=== PATIENT | female | born 1955 | race Caucasian/White ===

== ENCOUNTER 2023-10-04 07:04 | Day surgery (SDC) | payer OTHER ==
[2023-10-01 09:49] LABS: Absolute Basophils 0.1 K/uL (0-0.5); Absolute Eosinophils 0.2 K/uL (0-0.5); Absolute Lymphocytes (CBC) 2.2 K/uL (0.7-4.9); Basophils % 0.9 % (0-1.3); Eosinophils % 2.4 % (0-4.4); Hematocrit 42.8 % (36.0-45.0); Lymphocytes % 31.4 % (15.3-44.8); MCV 93.8 fL (80-100); MPV 8.2 fL (7.6-11.3); Platelets 305 thou/uL (152-406); RBC Red Blood Cell Count 4.56 M/uL (3.86-4.86)
[2023-10-01 09:59] LABS: Protime INR 0.99
--- NOTE | 2023-10-01 10:03 | RAD REPORT ---
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 COMPARISON: Chest Pa And Lat (2 Views) dated 08/11/2021; Chest Pa And Lat (2 Views) dated 09/25/2017; CHEST PA AND LAT 2 VIEW dated 07/14/2015; CHEST PA AND LAT 2 VIEW dated 07/03/2013 TECHNIQUE: PA and lateral views of the chest were obtained. FINDINGS: The lungs are hyperexpanded compatible with COPD. The heart is upper limit of normal in si ze. No fracture or aggressive bony process. IMPRESSION: COPD without acute process identified. The USPSTF recommends annual screening for lung cancer with low-dose CT (LDCT) in adults aged 50 to 80 years who have a 20 pack-year smoking history and currently smoke or have quit within the past 15 years.
[2023-10-01 10:05] LABS: Anion Gap 8.4 mEq/L (5.0-15.0); Potassium 4.4 mEq/L (3.5-5.1)
--- NOTE | 2023-10-01 16:05 | EKG ---
Test Date: 2023-10-01 Test Time: 10:39:17 Heat Engineering Teacher: VALENTINO MEASUREMENT RESULTS: Intervals: Rate: 54 DC: 124 QRSD: 94 QT: 436 QTc: 413 [place]: P: DC: 124 QRS: 77 T: 73 INTERPRETIVE STATEMENTS: Sinus bradycardia with sinus arrhythmia Nonspecific ST abnormality Abnormal ECG Compared to ECG 05/18/2014 15:47:18 No significant changes Electronically Signed On 10-01-23 16:04:26 DIE BARBER by Raman Nick
[2023-10-04] MEDS ORDERED: HEPA 1000U/500MLS 2,000 UNIT/1,000 ML BAG IV ONE (07:08)
[2023-10-04] MEDS ORDERED: NITROGLYCERIN/D5W 50 MG/250 ML BTL IV ONE (07:08)
[2023-10-04] MEDS ORDERED: LIDOCAINE 1% 20 ML MDV ONE (07:08)
[2023-10-04] MEDS ORDERED: VERAPAMIL HCL 10 MG/4 ML VIAL IV ONE (07:08)
[2023-10-04] MEDS ORDERED: HEPARIN 5000 UNIT/ML 1 ML VIAL ONE (07:09)
[2023-10-04] MEDS ORDERED: MIDAZOLAM HCL 2 MG/2 ML INJ ONE (07:09)
[2023-10-04] MEDS ORDERED: TICAGRELOR 90 MG TABLET PO ONE (07:09)
[2023-10-04] MEDS ORDERED: ATROPINE SULF 1 MG/10 ML SYR IV ONE (07:09)
[2023-10-04] MEDS ORDERED: FENTANYL CITR 100 MCG/2 ML ONE (07:09)
[2023-10-04] MEDS ORDERED: HEPARIN 10,000 UNIT/10 ML VIAL IV ONE (07:10)
[2023-10-04] MEDS ORDERED: CLOPIDOGREL 75 MG TABLET ONE (07:10)
[2023-10-04] MEDS ORDERED: ASPIRIN 325 MG TAB ONE (07:10)
[2023-10-04] MEDS ORDERED: NA CHLORIDE 0.9% 500 ML ONE (07:12)
[2023-10-04 10:58] VITALS: BP 124/56; O2SAT 96
== END 2023-10-04 10:40 | disposition home or self-care (01) ==
LOC: CCL 07:04
PROVIDERS: ATTEND Internal Medicine
DX: R94.39 Abnormal result of other cardiovascular function study (principal); R07.9 Chest pain, unspecified; R06.02 Shortness of breath; R03.0 Elevated blood-pressure reading, without diagnosis of hypertension; E78.5 Hyperlipidemia, unspecified; Z87.891 Personal history of nicotine dependence; Z79.899 Other long term (current) drug therapy; Z88.2 Allergy status to sulfonamides; Z88.8 Allergy status to other drugs, medicaments and biological substances
CPT/HCPCS: 93005; 85025; 80048; 36415; 85610; 85730; 71046; 93458; 76937; C1893; Q9966; J1644; J2001; J2250; J3010; J7040; 99152; 99153; J0461